=== PATIENT | male | born 2000 | race Two or more races ===

== ENCOUNTER 2023-10-03 22:45 | Emergency (ER) | payer BC, OTHER ==
[~2023-10-03] VITALS: Ht 180.3 cm; Wt 91.0 kg
[2023-10-03 22:45] VITALS: BP 137/74; PULSE 109; RESP 18; O2SAT 97
[2023-10-04] MEDS: IBUPROFEN 600 MG TAB PO ONE (02:12)
== END 2023-10-04 03:47 | disposition home or self-care (01) ==
LOC: ER 22:45
DX: M25.572 Pain in left ankle and joints of left foot (principal); M25.571 Pain in right ankle and joints of right foot
CPT/HCPCS: 73610